=== PATIENT | male | born 1995 | race Caucasian/White ===

== ENCOUNTER 2023-07-17 09:49 | Inpatient (IN) | payer SELFPAY ==
[2023-07-17] VITALS (75 sets, daily range): BP systolic 80–125; BP diastolic 36–78; PULSE 97–149; RESP 10–33; TEMP 34–38.3; O2SAT 77–100
--- NOTE | 2023-07-17 09:30 | RT.EKG_ITS ---
APPROVED REPORT Exam: Resting ECG Reason for Exam: [facility] Patient Location: E HR:147 bpm ECG Measurements Heart Rate 147 AXIS OH 99 P 75 QRSd 80 QRS 78 QT 265 T 6 QTc 415 Conclusion Sinus tachycardia...rate> 99
--- NOTE | 2023-07-17 09:59 | W.ED.GENAD ---
Discharge Plan Disposition Patient Disposition: Admit to [facility] Condition: Serious Discharge Details Clinical Impression: Accidental drug overdose, Hypoxia, Pneumonia ED Provider: Agnieszka Hartley Home Meds and New Rx's Prescriptions: No Action No Known Home Meds HPI General Date/Time Provider Initiated Documentation: 07/17/23 09:56. HPI Narrative: 27-year-old male presents for evaluation after drug overdose. Patient received intranasal Narcan twice with EMS. He was initially unresponsive. He required bagging prior to Narcan. He was awake in route and able to follow commands. At time of ED evaluation he is able to stand and move over to the stretcher. He has dusky coloring. He does not know when he used the drugs. EMS stated that he thought he was using heroin. Related Data Home Medications Medication Instructions Recorded Confirmed Unknown [No Known Home Meds] 07/17/23 07/17/23 General Stated Complaint: OD/Poison DANIELLE: 2 Review of Systems Narrative: Review of systems unobtainable due to patient's medical condition Exam Narrative Exam Narrative: General: non-toxic, no respiratory distress, dusky coloring HEENT: normocephalic, atraumatic, lids and lashes normal, pupils pinpoint, EOMI, anicteric sclera, no conjunctival injection, moist oral mucosa Card: Tachycardic, regular, S1S2, no murmurs, rubs, or gallops Lungs: good air entry, clear to auscultation bilaterally. no wheezes, rales, rhonchi, or retractions Abd: soft, non-tender, non-distended, normal bowel sounds, no rebound or guarding, no peritoneal signs Musculoskeletal: full range of motion of arms and legs, no tenderness to palpation. no clubbing, cyanosis, or edema Neurologic: GCS 15, able to follow commands, appropriate for age, strength normal Psych: alert and oriented Skin: As above, otherwise no petechiae, no lesions, warm and dry Course Vital Signs Vital signs: Vital Signs Temperature 36.7 C 07/17/23 09:35 Pulse 149 H 07/17/23 09:35 Respiratory Rate 28 H 07/17/23 09:35 Blood Pressure 112/55 L 07/17/23 09:35 Pulse Oximetry 77 L 07/17/23 09:35 Temperature 36.7 C 03/04/24 09:35 Temperature Source Oral 07/17/23 09:35 Pulse 149 H 07/17/23 09:35 Respiratory Rate 28 H 07/17/23 09:35 Blood Pressure 112/55 L 07/17/23 09:35 Blood Pressure Position Supine 07/17/23 09:35 Pulse Oximetry 77 L 07/17/23 09:35 Oxygen Delivery Method Non-Rebreather 07/17/23 09:35 Oxygen Flow Rate 15 07/17/23 09:35 Medical Decision Making 27-year-old male presents for evaluation after drug overdose. He initially was unresponsive, required bagging, 2 intranasal doses of Narcan. At ED arrival his skin is very dusky. He continues to have pinpoint pupils. Initial oxygen saturation in the 70s however on exam he was moving good air. 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 ABG was obtained. He does have pH of 7.3 with a pCO2 of 54. Chest x-ray was obtained and concerning for fluid. 1010 -Patient did start to wake up more. His pupils were not as dilated and he is able to answer a few more questions. Will place on BiPAP. Patient's oxygen saturations blood pressure improved on BiPAP. He remained on BiPAP until he began having some coughing episodes and pulled the BiPAP off. A repeat ABG was obtained just prior to that which shows significant improvement in his oxygenation. BiPAP remained off due to patient's coughing. He did then have multiple episodes of apnea between coughing. Respiratory therapy was at bedside. Upon urging him to breathing cough he did. A dose of IV Narcan was therefore given. He was switched to high flow nasal cannula. His blood pressure had improved with systolics greater than 100 however during this episode his blood pressure then decreased again. Additional IV fluids were ordered. Patient's girlfriend did arrive with more history. Apparently patient was last seen well at night prior to going to bed. This morning when she woke up he was unresponsive with pink frothy vomit. She called 911. Patient states that he is actually had a cough for the last month. He does vape. He believes he was smoking heroin last night. He states this was an accidental overdose. He was not trying to hurt himself. Patient did receive a second dose of Narcan. He high flow oxygen was placed. Vital signs have improved. Case was discussed with hospitalist, Dr. Callahan who will admit to his service. ECG Data Interpretation: 12 lead EKG performed at 9: 41 Indication: Overdose Rhythm: Sinus tachycardia Rate: 147 [place]:Normal Intervals: Normal QRS: Normal ST segments: Normal T Waves: Normal INTERPRETATION: Sinus tachycardia Comparison to old EKG: No prior for comparison The 12 lead EKG was interpreted by myself Quality:SDOH Health Related Social Needs: No Data to Display Critical Care Time Critical Care Time Attestation: CRITICAL CARE Total critical care time: 75 minutes Critical care concerns: Hypoxia, hypotension Critical care interventions: oxygen, IV fluids, IV antibiotics, IV narcan, frequent reassesment Total critical care time included the assessment and discussions as described in the emergency department history, physical, and medical decision making. The critical care time provided excludes separately billable procedures. PFSH All Active Problems (Updated 07/17/23 @ 13:14 by Nick Callahan MD) Acute respiratory failure with hypoxia (Acute) Severe sepsis (Acute) Aspiration pneumonia (Acute) Opiate overdose (Acute) Pneumonia (Acute) Hypoxia (Acute) Accidental drug overdose (Acute) Social History Smoking/Tobacco Use Status: Never Smoking risk assessment performed?: Yes Alcohol Intake: never Substance use type: does not use and heroin Details: pt reports no drug use, but states used this am
[2023-07-17 10:03] LABS: BE -3 mmol/L (-2-3); HCO3 23 mmol/L (22-26); pCO2 48 mmHg (35-45); pO2 54 mmHg (80-105); sO2 87 % (95-98); tCO2 21 mmol/L (23-27)
[2023-07-17 10:06] LABS: FIO2L 15 L; Site Left Radial
[2023-07-17 10:11] LABS: Abs Immature Grans 0.08 10^3/uL (0.0-0.06); Basophils % 0.5; Eosinophils % 0.1; HCT 51.8 % (40.0-50.0); Immature Grans % 0.4; Lymphocytes % 7.8; MCH 35.1 pg (27.0-33.0); MCHC 34.7 % (32.0-36.0); MCV 101 fL (80-95); MPV 9.2 fL (8.0-11.0); Monocytes % 0.9; Neutrophils % 90.3; Platelet Count 361 10^3/uL (130-400); RBC 5.13 10^6/uL (4.36-5.78); RDW 12.1 % (11.8-14.1); RDW-SD 45.9 fL; WBC 19.12 10^3/uL (4.4-10.8)
[2023-07-17 10:12] LABS: Absolute Eosinophil Count 0.02 10^3/uL (0.0-0.7); Absolute Lymphocyte Count 1.49 10^3/uL (1.2-3.4); Absolute Monocyte Count 0.17 10^3/uL (0.1-0.8); Absolute Neutrophil Count 17.27 10^3/uL (1.2-6.7)
--- NOTE | 2023-07-17 10:12 | DI.RAD_ITS ---
Exam(s) XR PORTABLE CHEST AP EXAM: XR PORTABLE CHEST AP CLINICAL HISTORY: overdose TECHNIQUE: 2D digital imaging was performed. COMPARISON: No exams were available for comparison FINDINGS: Exam limited by multiple overlying monitoring leads. LUNGS: Large infiltrate involving the majority of the right lung. Mildly increased density seen in t he perihilar region on the left. No pleural abnormality seen. HEART: Normal size. AORTA: Normal diameter. BONES: Unremarkable for age. Soft tissues: Unremarkable. IMPRESSION: Bilateral pneumonia, right greater than left. DATA REPOSITORY: RADIATION DOSE DELIVERED:
[2023-07-17] MEDS: Normal Saline 1,000 ML 1000 ML IV ×4 (10:20→12:50)
[2023-07-17] MEDS: PIPERACILLIN/TAZO 4.5 GM in Normal Saline 100 ML IVPB ×3 (10:40→22:43)
[2023-07-17 10:42] LABS: Lactate 3.1 mmol/L (0.6-1.4)
[2023-07-17 11:02] LABS: Salicylate < 2.8 mg/dL (<2.8)
[2023-07-17 11:03] LABS: Acetaminophen < 2 ug/mL (10-30)
[2023-07-17 11:05] LABS: ALT 28 U/L (16-63); AST 23 U/L (15-37); Albumin 3.2 g/dL (3.4-5.0); Alkaline Phosphatase 73 U/L (46-116); Anion Gap 12.1 mmol/L (3-11); BUN 14 mg/dL (7-18); Bilirubin, Total 0.3 mg/dL (0.2-1.0); CO2 24.9 mmol/L (21.0-32.0); CREATININE 1.5 mg/dL (0.70-1.30); Calcium 8.4 mg/dL (8.5-10.1); Chloride 104 mmol/L (98-107); ETHANOL BLOOD < 3.0 mg/dL (<10); Estimated GFR 65.03 (mL/min/1.73m2); Glucose 116 mg/dL (74-106); Potassium 3.9 mmol/L (3.5-5.1); Sodium 141 mmol/L (136-145); Total Protein 6.2 g/dL (6.4-8.2)
[2023-07-17 11:06] LABS: Troponin I 158 ng/L (< or =60)
[2023-07-17 11:33] LABS: Creatine Kinase 351 U/L (39-308)
[2023-07-17 11:38] LABS: BE -3 mmol/L (-2-3); HCO3 24 mmol/L (22-26); pCO2 51 mmHg (35-45); pH 7.27 (7.35-7.45); pO2 260 mmHg (80-105)
[2023-07-17 11:39] LABS: FIO2 100 %; Site Left Radial
[2023-07-17 11:48] LABS: Bilirubin Negative (Negative); Blood Negative (Negative); Clarity Clear (Clear); Glucose 100 mg/dL (Negative); Ketones Negative (Negative); Leukocyte Esterase Negative (Negative); Nitrite Negative (Negative); Specific Gravity >= 1.030 (1.005-1.025); Urobilinogen 0.2 mg/dL (Up to 0.2); pH 5.5 (5-8)
[2023-07-17 11:53] LABS: *AMPHETAMINES SCREEN URINE Negative (Negative); *BARBITURATES SCREEN URINE Negative (Negative); *BENZODIAZEPINES SCREEN URINE Negative (Negative); Cannabinoids THC Negative (Negative); Cocaine Screen,Urine Positive (Negative); METHADONE URINE SCREEN Negative (Negative); OPIATES URINE SCREEN Negative (Negative)
[2023-07-17] MEDS: Naloxone 0.4 MG/ML VIAL IVP (11:53)
[2023-07-17 11:54] LABS: Tricyclic Antidepressants Negative (Negative)
[2023-07-17] MEDS: Naloxone 0.4 MG/ML VIAL (12:34)
[2023-07-17 12:35] LABS: COVID-19 PCR Negative (Negative); Influenza A PCR Negative (Negative); Influenza B PCR Negative (Negative); RSV PCR Negative (Negative)
[2023-07-17 12:36] LABS: Source Nasopharynx
[2023-07-17 12:38] LABS: sO2 98 % (95-98)
--- NOTE | 2023-07-17 13:06 | HPE_ITS ---
Date of service: 07/17/23 Time of Service: 13:07 Assessment and Plan Assessment and plan (1) Opiate overdose: Status: Acute Assessment and plan: - Patient presented after being found down with concerns for opiate overdose -Patient did responded to intranasal Narcan in the field and has required 2 additional doses of 0.4 mg IV Narcan while in the emergency department -Patient appears to be more awake with comparatively more dilated pupils compared to presentation -However, if patient's respiratory rate declines, he has worsening oxygen saturation or becomes less responsive will initiate Narcan drip Qualifiers: Encounter type: initial encounter Injury intent: accidental or unintentional Qualified Code(s): T40.601A - Poisoning by unspecified narcotics, accidental (unintentional), initial encounter (2) Severe sepsis: Status: Acute Assessment and plan: - Patient meets criteria for severe sepsis with chest x-ray suggestive of bilateral aspiration pneumonia in the setting of opiate overdose, tachycardia with heart rate greater than 90 bpm, tachypnea with respiratory rate greater than 20 breaths/min, a white count of 19, initial lactic acid of 3.1, and systolic blood pressure less than 90 that has responded to fluid resuscitation -Patient initially started on Zosyn in the emergency department which will be continued -MRSA swab ordered, will initiate vancomycin if positive -Will follow-up repeat lactic acid and CBC in the morning -Follow-up blood cultures -Obtain sputum culture if able -Patient has been given 4 L normal saline in the emergency department for fluid resuscitation -If patient remains hypotensive will initiate Levophed (3) Aspiration pneumonia: Status: Acute Assessment and plan: - Source of infection and likely secondary to opiate overdose as noted above (4) Acute respiratory failure with hypoxia: Status: Acute Assessment and plan: - Secondary to opiate overdose and presumed bilateral aspiration pneumonia as noted above -Currently on high flow nasal cannula -Wean oxygen as tolerated with goal oxygen saturation greater than 92% History of Present Illness History of Present Illness Chief Complaint: Drug overdose Narrative: 27-year-old male with no past medical history presents to the emergency department via EMS for concerns of opiate overdose. Patient's last known well was last evening when he saw his girlfriend and reportedly last used heroin. It is unclear who called EMS, however he was initially found by EMS unresponsive and required bagging prior to giving 2 doses of intranasal Narcan. En route to the emergency department EMS reported the patient was able to follow commands, able to stand and move over to the stretcher, but he appeared dusky. In the emergency department the patient was noted as having pinpoint pupils with oxygen saturations in the 70s despite fact that he was moving good air. ABG was obtained which showed pH of 7.3, CO2 of 48, pO2 54, bicarb of 23 with a lactic of 3.1. Shortly after patient appeared to have woken up a little more his pupils were not as dilated as compared to initial presentation was placed on BiPAP which did show improvement of his oxygen saturation. However, patient did not tolerate BiPAP as he was also able to state that he has had a chronic cough over the last month. Chest x-ray was concerning for pulmonary edema which can be associated with opiate overdose, however, official read noted possible bilateral pneumonia likely due to aspiration. Given patient was not tolerating BiPAP he was placed on high flow nasal cannula and appeared to be more comfortable. He did require a second dose of IV Narcan while in the emergency department. Additionally, he had low blood pressures with some systolics in the mid 80s though he appears significantly dry and was given a total of 4 L normal saline in the emergency department with improvement of his systolic blood pressures to the high 90s. At which time emergency room physician paged hospitalist for admission for patient with presumed opiate overdose resulting in acute hypoxic respiratory failure, and severe sepsis with bilateral aspiration pneumonia and lactic acidosis. Review of Systems All systems reviewed & are unremarkable except as noted in HPI and below PFSH All Active Problems (Updated 07/17/23 @ 14:19 by DEEPA SANDERSON) Acute respiratory failure with hypoxia (Acute) Severe sepsis (Acute) Aspiration pneumonia (Acute) Opiate overdose (Acute) Pneumonia (Acute) Hypoxia (Acute) Accidental drug overdose (Acute) Social History Smoking/Tobacco Use Status: Never Smoking risk assessment performed?: Yes Alcohol Intake: never Substance use type: does not use and heroin Details: pt reports no drug use, but states used this am Housing: apartment Meds Allergies and Home Medications Home Medications Medication Instructions Recorded Confirmed Type Unknown [No Known Home Meds] 07/17/23 07/17/23 History Exam Narrative Exam Narrative: Fatigued appearing young gentleman laying in bed and mild respiratory distress due to pleuritic chest pain, ANO x 4, mild tachycardia with heart rate of 100, bilateral coarse breath sounds in bases, abdomen soft, nontender, nondistended, PERRLA Results Labs 07/17/23 09:50 07/17/23 10:25 Labs: Laboratory Results - last 24 hr 07/17/23 07/17/23 07/17/23 09:50 10:00 10:25 WBC 19.12 H RBC 5.13 Hgb 18.0 H Hct 51.8 H MCV 101 H MCH 35.1 H MCHC 34.7 RDW 12.1 Plt Count 361 MPV 9.2 Immature Gran % 0.4 Neutrophils % 90.3 Lymphocytes % 7.8 Monocytes % 0.9 Eosinophils % 0.1 Basophils % 0.5 Nucleated RBC % 0.0 Absolute Neutrophils 17.27 H Absolute Lymphocytes 1.49 Absolute Monocytes 0.17 Absolute Eosinophils 0.02 Absolute Basophils 0.10 ABG Sample Site Left Radial ABG pH 7.30 L ABG pCO2 48 H ABG pO2 54 L ABG HCO3 23 ABG Total CO2 21 L ABG O2 Saturation 87 L ABG Base Excess -3 L VBG Lactate 3.1 H* Oxygen Liter Flow 15 FiO2 Sodium Cancelled 141 Potassium Cancelled 3.9 Chloride Cancelled 104 Carbon Dioxide Cancelled 24.9 Anion Gap Cancelled 12.1 H BUN Cancelled 14 Creatinine Cancelled 1.5 H Est GFR (CKD-EPI 2020) Cancelled 65.03 Glucose Cancelled 116 H Calcium Cancelled 8.4 L Magnesium Cancelled 2.0 Total Bilirubin Cancelled 0.3 AST Cancelled 23 ALT Cancelled 28 Alkaline Phosphatase Cancelled 73 Creatine Kinase 351 H Troponin I Cancelled 158 H* Total Protein Cancelled 6.2 L Albumin Cancelled 3.2 L Urine Color Urine Clarity Urine pH Ur Specific [place] Urine Protein Urine Ketones Urine Blood Urine Nitrite Urine Bilirubin Urine Urobilinogen Ur Leukocyte Esterase Urine Glucose Salicylates < 2.8 Urine Opiates Screen Urine Methadone Screen Acetaminophen < 2 Ur Barbiturates Screen Ur Tricyclics Screen Ur Amphetamines Screen U Benzodiazepines Scrn Urine Cocaine Screen Ur THC Screen Ethyl Alcohol Cancelled < 3.0 COVID-19 Source SARS-CoV-2 (PCR) Influenza Type A (PCR) Influenza Type B (PCR) RSV (PCR) 07/17/23 07/17/23 11:30 11:56 WBC RBC Hgb Hct MCV MCH MCHC RDW Plt Count MPV Immature Gran % Neutrophils % Lymphocytes % Monocytes % Eosinophils % Basophils % Nucleated RBC % Absolute Neutrophils Absolute Lymphocytes Absolute Monocytes Absolute Eosinophils Absolute Basophils ABG Sample Site Left Radial ABG pH 7.27 L ABG pCO2 51 H ABG pO2 260 H ABG HCO3 24 ABG Total CO2 Not Applicable ABG O2 Saturation 98 ABG Base Excess -3 L VBG Lactate Oxygen Liter Flow FiO2 100 Sodium Potassium Chloride Carbon Dioxide Anion Gap BUN Creatinine Est GFR (CKD-EPI 2020) Glucose Calcium Magnesium Total Bilirubin AST ALT Alkaline Phosphatase Creatine Kinase Troponin I Total Protein Albumin Urine Color Yellow Urine Clarity Clear Urine pH 5.5 Ur Specific [place] >= 1.030 H Urine Protein Negative Urine Ketones Negative Urine Blood Negative Urine Nitrite Negative Urine Bilirubin Negative Urine Urobilinogen 0.2 Ur Leukocyte Esterase Negative Urine Glucose 100 H Salicylates Urine Opiates Screen Negative Urine Methadone Screen Negative Acetaminophen Ur Barbiturates Screen Negative Ur Tricyclics Screen Negative Ur Amphetamines Screen Negative U Benzodiazepines Scrn Negative Urine Cocaine Screen Positive A Ur THC Screen Negative Ethyl Alcohol COVID-19 Source Nasopharynx SARS-CoV-2 (PCR) Negative Influenza Type A (PCR) Negative Influenza Type B (PCR) Negative RSV (PCR) Negative Last Vital Signs Temp 98.1 F 07/17/23 09:35 Pulse 108 H 07/17/23 12:45 Resp 25 H 07/17/23 12:50 BP 98/63 L 07/17/23 12:45 Pulse Ox 86 L 07/17/23 11:40 Time Spent Time spent with Patient: 55-74 minutes Time was spent: preparing to see the patient(eg.review tests), obtaining and/or reviewing separately otained hiistory, ordering medications,tests, procedures, referring, communicating with other health career technology teacher, indepentently interpreting results, counseling the patient and care coordination
[2023-07-17 13:52] LABS: Lactate 1.3 mmol/L (0.6-1.4)
[2023-07-17 14:21] LABS: MRSA PCR Negative (Negative)
[2023-07-17 14:22] LABS: Troponin I 381 ng/L (< or =60)
[2023-07-17] MEDS: Enoxaparin 40 MG/0.4 ML SYR SC (15:19)
[2023-07-18] VITALS (88 sets, daily range): BP systolic 96–132; BP diastolic 49–84; PULSE 80–116; RESP 0–36; TEMP 31–37.7; O2SAT 88–98
--- NOTE | 2023-07-18 00:33 | NUR.NOTE ---
Nursing Note: Pt maintaining Sp02 above 95%. Titrated FiO2 to 50% @ 60L
[2023-07-18] MEDS: PIPERACILLIN/TAZO 4.5 GM in Normal Saline 100 ML IVPB ×4 (04:39→21:13)
[2023-07-18 05:32] LABS: HCT 35.4 % (40.0-50.0); HGB 12.3 g/dL (13.5-17.5); MCH 34.7 pg (27.0-33.0); MCHC 34.7 % (32.0-36.0); MCV 100 fL (80-95); MPV 9.2 fL (8.0-11.0); Platelet Count 154 10^3/uL (130-400); RBC 3.54 10^6/uL (4.36-5.78); RDW 11.8 % (11.8-14.1); RDW-SD 43.6 fL; WBC 11.03 10^3/uL (4.4-10.8)
[2023-07-18 05:44] LABS: Anion Gap 6.1 mmol/L (3-11); BUN 8 mg/dL (7-18); CO2 25.9 mmol/L (21.0-32.0); CREATININE 1.1 mg/dL (0.70-1.30); Calcium 7.6 mg/dL (8.5-10.1); Chloride 106 mmol/L (98-107); Estimated GFR 94.36 (mL/min/1.73m2); Glucose 114 mg/dL (74-106); Potassium 3.3 mmol/L (3.5-5.1); Sodium 138 mmol/L (136-145)
[2023-07-18] MEDS: oxyCODONE 5 MG TAB PO (09:27)
--- NOTE | 2023-07-18 09:35 | PGE_ITS ---
Date of Service Date of service: 07/18/23 Time of Service: 09:35 Assessment and Plan Assessment and plan (1) Opiate overdose: Status: Acute Assessment and plan: -Patient presented after being found down with concerns for opiate overdose -Patient did responded to intranasal Narcan in the field and has required 2 additional doses of 0.4 mg IV Narcan while in the emergency department -Patient appears to be more awake with comparatively more dilated pupils compared to presentation -However, if patient's respiratory rate declines, he has worsening oxygen saturation or becomes less responsive will initiate Narcan drip Qualifiers: Encounter type: initial encounter Injury intent: accidental or unintentional Qualified Code(s): T40.601A - Poisoning by unspecified narcotics, accidental (unintentional), initial encounter (2) Severe sepsis: Status: Acute Assessment and plan: - Patient meets criteria for severe sepsis with chest x-ray suggestive of bilateral aspiration pneumonia in the setting of opiate overdose, tachycardia with heart rate greater than 90 bpm, tachypnea with respiratory rate greater than 20 breaths/min, a white count of 19, initial lactic acid of 3.1, and systolic blood pressure less than 90 that has responded to fluid resuscitation -Patient initially started on Zosyn in the emergency department which will be continued -MRSA swab ordered, will initiate vancomycin if positive -Will follow-up repeat lactic acid and CBC in the morning -Follow-up blood cultures -Obtain sputum culture if able -Patient has been given 4 L normal saline in the emergency department for fluid resuscitation -If patient remains hypotensive will initiate Levophed (3) Aspiration pneumonia: Status: Acute Assessment and plan: - Source of infection and likely secondary to opiate overdose as noted above (4) Acute respiratory failure with hypoxia: Status: Acute Assessment and plan: -Secondary to opiate overdose and presumed bilateral aspiration pneumonia as noted above -Had required up to 60 L and 60% high flow nasal cannula overnight -As of this morning has been weaned down to 2 L nasal cannula -Continue to wean as tolerated with goal oxygen saturation greater than 92% Subjective Subjective Interval history since last seen: Patient states that he is feeling a little better as compared to yesterday but continues to have significant pleuritic chest pain. It was explained to him this is likely secondary to scar from having performed CPR, his opiate overdose and resulting aspiration pneumonia/pneumonitis. He understands the importance of using his incentive spirometer and taking deep breaths. Exam Narrative Exam Narrative: Fatigued appearing young gentleman laying in bed in no acute distress, ANO x 4, heart regular rate and rhythm, mild coarse breath sounds in bilateral bases, abdomen soft, nontender, nondistended Objective Last Vital Signs Temp 98.4 F 07/18/23 08:00 Pulse 86 07/18/23 08:01 Resp 22 07/18/23 08:41 BP 127/78 07/18/23 08:01 Pulse Ox 95 07/18/23 08:41 Laboratory Results - last 24 hr 07/17/23 07/17/23 07/17/23 09:50 10:00 10:25 WBC 19.12 H RBC 5.13 Hgb 18.0 H Hct 51.8 H MCV 101 H MCH 35.1 H MCHC 34.7 RDW 12.1 Plt Count 361 MPV 9.2 Immature Gran % 0.4 Neutrophils % 90.3 Lymphocytes % 7.8 Monocytes % 0.9 Eosinophils % 0.1 Basophils % 0.5 Nucleated RBC % 0.0 Absolute Neutrophils 17.27 H Absolute Lymphocytes 1.49 Absolute Monocytes 0.17 Absolute Eosinophils 0.02 Absolute Basophils 0.10 ABG Sample Site Left Radial ABG pH 7.30 L ABG pCO2 48 H ABG pO2 54 L ABG HCO3 23 ABG Total CO2 21 L ABG O2 Saturation 87 L ABG Base Excess -3 L VBG Lactate 3.1 H* Oxygen Liter Flow 15 FiO2 Sodium Cancelled 141 Potassium Cancelled 3.9 Chloride Cancelled 104 Carbon Dioxide Cancelled 24.9 Anion Gap Cancelled 12.1 H BUN Cancelled 14 Creatinine Cancelled 1.5 H Est GFR (CKD-EPI 2020) Cancelled 65.03 Glucose Cancelled 116 H Calcium Cancelled 8.4 L Magnesium Cancelled 2.0 Total Bilirubin Cancelled 0.3 AST Cancelled 23 ALT Cancelled 28 Alkaline Phosphatase Cancelled 73 Creatine Kinase 351 H Troponin I Cancelled 158 H* Total Protein Cancelled 6.2 L Albumin Cancelled 3.2 L Urine Color Urine Clarity Urine pH Ur Specific [place] Urine Protein Urine Ketones Urine Blood Urine Nitrite Urine Bilirubin Urine Urobilinogen Ur Leukocyte Esterase Urine Glucose Salicylates < 2.8 Urine Opiates Screen Urine Methadone Screen Acetaminophen < 2 Ur Barbiturates Screen Ur Tricyclics Screen Ur Amphetamines Screen U Benzodiazepines Scrn Urine Cocaine Screen Ur THC Screen Ethyl Alcohol Cancelled < 3.0 COVID-19 Source SARS-CoV-2 (PCR) Influenza Type A (PCR) Influenza Type B (PCR) RSV (PCR) MRSA (TEM-PCR) 07/17/23 07/17/23 07/17/23 11:30 11:56 13:05 WBC RBC Hgb Hct MCV MCH MCHC RDW Plt Count MPV Immature Gran % Neutrophils % Lymphocytes % Monocytes % Eosinophils % Basophils % Nucleated RBC % Absolute Neutrophils Absolute Lymphocytes Absolute Monocytes Absolute Eosinophils Absolute Basophils ABG Sample Site Left Radial ABG pH 7.27 L ABG pCO2 51 H ABG pO2 260 H ABG HCO3 24 ABG Total CO2 Not Applicable ABG O2 Saturation 98 ABG Base Excess -3 L VBG Lactate Oxygen Liter Flow FiO2 100 Sodium Potassium Chloride Carbon Dioxide Anion Gap BUN Creatinine Est GFR (CKD-EPI 2020) Glucose Calcium Magnesium Total Bilirubin AST ALT Alkaline Phosphatase Creatine Kinase Troponin I Total Protein Albumin Urine Color Yellow Urine Clarity Clear Urine pH 5.5 Ur Specific [place] >= 1.030 H Urine Protein Negative Urine Ketones Negative Urine Blood Negative Urine Nitrite Negative Urine Bilirubin Negative Urine Urobilinogen 0.2 Ur Leukocyte Esterase Negative Urine Glucose 100 H Salicylates Urine Opiates Screen Negative Urine Methadone Screen Negative Acetaminophen Ur Barbiturates Screen Negative Ur Tricyclics Screen Negative Ur Amphetamines Screen Negative U Benzodiazepines Scrn Negative Urine Cocaine Screen Positive A Ur THC Screen Negative Ethyl Alcohol COVID-19 Source Nasopharynx SARS-CoV-2 (PCR) Negative Influenza Type A (PCR) Negative Influenza Type B (PCR) Negative RSV (PCR) Negative MRSA (TEM-PCR) Negative 07/17/23 07/18/23 13:42 05:15 WBC 11.03 H RBC 3.54 L Hgb 12.3 L D Hct 35.4 L MCV 100 H MCH 34.7 H MCHC 34.7 RDW 11.8 Plt Count 154 D MPV 9.2 Immature Gran % Neutrophils % Lymphocytes % Monocytes % Eosinophils % Basophils % Nucleated RBC % Absolute Neutrophils Absolute Lymphocytes Absolute Monocytes Absolute Eosinophils Absolute Basophils ABG Sample Site ABG pH ABG pCO2 ABG pO2 ABG HCO3 ABG Total CO2 ABG O2 Saturation ABG Base Excess VBG Lactate 1.3 Oxygen Liter Flow FiO2 Sodium 138 Potassium 3.3 L Chloride 106 Carbon Dioxide 25.9 Anion Gap 6.1 BUN 8 Creatinine 1.1 Est GFR (CKD-EPI 2020) 94.36 Glucose 114 H Calcium 7.6 L Magnesium Total Bilirubin AST ALT Alkaline Phosphatase Creatine Kinase Troponin I 381 H* Total Protein Albumin Urine Color Urine Clarity Urine pH Ur Specific [place] Urine Protein Urine Ketones Urine Blood Urine Nitrite Urine Bilirubin Urine Urobilinogen Ur Leukocyte Esterase Urine Glucose Salicylates Urine Opiates Screen Urine Methadone Screen Acetaminophen Ur Barbiturates Screen Ur Tricyclics Screen Ur Amphetamines Screen U Benzodiazepines Scrn Urine Cocaine Screen Ur THC Screen Ethyl Alcohol COVID-19 Source SARS-CoV-2 (PCR) Influenza Type A (PCR) Influenza Type B (PCR) RSV (PCR) MRSA (TEM-PCR) PAWSS Have you Been Recently Intoxicated or Drunk Within the Last 30 days?: No Have you Ever Experienced Previous Episodes of Alcohol Withdrawal?: No Have you ever Experienced Withdrawal Seizures?: No Have you ever Experienced Delirium Tremens(DT)s?: No Have you ever undergone Alcohol Rehabilitation Treatment (i.e, inpt ot outpatient treatment programs)?: No Have you ever Experienced Blackouts?: No Have you ever Combined Alcohol with other Downers within the last 90 days?: Unable to Obtain Have you ever Combined Alcohol with any other Substance of Abuse during the last 90 days?: Yes Positive Blood Alcohol level on Presentation? [PCS.BAL]: No Evidence of Increased Autonomic Activity (i.e. HR>120, tremor, sweating, agitation, nausea)?: No Result: 2 Time Spent with Patient Time Spent with Patient: >50 minutes Time was spent: preparing to see the patient(eg.review tests), obtaining and/or reviewing separately otained hiistory, ordering medications,tests, procedures, referring, communicating with other health med care manager, indepentently interpreting results, counseling the patient and care coordination
--- NOTE | 2023-07-18 11:42 | PHA.REVIEW2 ---
Pharmacy Admission Review Admission Clinical Review Admission Pharmacy Review: Acute respiratory failure with hypoxia (Acute) Severe sepsis (Acute) Aspiration pneumonia (Acute) Opiate overdose (Acute) No Known Allergies Allergy (Unverified 07/17/23 21:29) Resuscitation Status Full Code Height 6 ft Weight 86 kg Pharmacy Admission Review Renal Dosing Renal Dosing: BUN 8 mg/dL (7-18) 07/18/23 05:15 Creatinine 1.1 mg/dL (0.70-1.30) 07/18/23 05:15 Medications needing adjustments: Reviewed (crcl = 122, no adjustments needed) Anticoagulation Anticoagulation: Hgb 12.3 g/dL (13.5-17.5) L D 07/18/23 05:15 Hct 35.4 % (40.0-50.0) L 07/18/23 05:15 Plt Count 154 10^3/uL (130-400) D 07/18/23 05:15 Creatinine 1.1 mg/dL (0.70-1.30) 07/18/23 05:15 DVT Prophylaxis: Reviewed Medications: Enoxaparin (40 mg daily) Therapeutic Anticoagulation: N/A Opiate Usage Evaluate Pain Scale/Pains Meds: Reviewed (oxycodone 5 mg q6h prn started today for significant pleuritic chest pain (MD aware of hx of opiate abuse, overdose)) Scheduled Bowel Reg ordered if on Opiates?: No (prn) Relevant Labs Relevant Labs: Sodium 138 mmol/L (136-145) 07/18/23 05:15 Potassium 3.3 mmol/L (3.5-5.1) L 07/18/23 05:15 Chloride 106 mmol/L (98-107) 07/18/23 05:15 Magnesium 2.0 mg/dL (1.8-2.4) 07/17/23 10:25 Electrolytes, C-Reactive P, ESR: Reviewed (hgb 12.3 (from 18 yesterday)) DM Control DM Control: N/A Cardiac Review Cardiac Review: Troponin I 381 ng/L (< or =60) H* 07/17/23 13:42 BP, HR, EF%: Reviewed QTc Review QTc: Reviewed (QTc = 415, WNL) List meds needing interventions: n/a IV to PO Switch IV Medications: Reviewed (IV abx for aspiration pneumonia, likely switch to PO on discharge. otherwise other meds all PO) Home Meds Home Med List reviewed: Reviewed (no known home meds) Current Meds Current Medication Order Review: Reviewed Pharmacy Antibiotic Review Relevant Labs: WBC 11k [place] [id number] yesterday Pharmacy Antibiotic Activity: C/S review (MRSA swab negative. sputum, blood cultures pending) and Reviewed, no change Comments: zosyn 4.5 q6h (indication: aspiration pneumonia)
[2023-07-18] MEDS: Enoxaparin 40 MG/0.4 ML SYR SC (15:19)
--- NOTE | 2023-07-18 16:16 | PDOC.CMIN ---
Date of service: 07/18/23 Time of Service: 16:16 Care Management Initial Assmt Initial Assessment REASON FOR HOSPITALIZATION:: Accidental overdose PREVIOUS FUNCTIONAL STATUS/SOCIAL/FAMILY SUPPORTS:: Resides locally, in [place]. Appears independent at baseline in the community. Significant other present during hospitalization. CURRENT FUNCTIONAL STATUS:: CM consulted re: behavioral outbursts from Patrice and his significant other including insults and swearing at each other and being verbally aggressive toward staff. CM attempted to preface observations and reason for consult; significant other (SO) became verbally abusive toward this personal lines underwriter, said she would rather leave, and balled up her blanket and threw it at Dagoberto head from a step away stating I hope you're happy now! She verbalized feeling like she could be emotionally explosive because my boyfriend just OD'd two nights ago, CM attempted to positively redirect interaction, SO called this personal lines underwriter a plethora of insults and stormed out of the room. CM attempted to debrief with Patrice who stated I just want to be left alone. ADVANCE DIRECTIVES:: None on file Has patient been provided with info about the portal/API?: No Did the patient sign up for the portal?: No CODE STATUS:: Full Code INSURANCE COVERAGE / FINANCIAL ISSUES:: Unable to obtain CURRENT HOME/COMMUNITY SERVICES/EQUIPMENT:: Unable to obtain PRIMARY CARE PHYSICIAN:: Unable to obtain POTENTIAL DISCHARGE NEEDS:: CM will again attempt to support Patrice and offer PCP follow up, insurance support, review recovery services per patient wishes and engagement. PATIENT/FAMILY EDUCATION NEEDS:: Review discharge instructions, discuss Ask Me Three. ANTICIPATED BARRIERS TO DISCHARGE:: None identified. TRANSPORTATION:: Anticipate via private vehicle with [employer]. PLAN:: Patrice remains in the ICU-CM following. [facility] All Active Problems (Updated 07/17/23 @ 14:19 by DEEPA SANDERSON) Acute respiratory failure with hypoxia (Acute) Severe sepsis (Acute) Aspiration pneumonia (Acute) Opiate overdose (Acute) Pneumonia (Acute) Hypoxia (Acute) Accidental drug overdose (Acute) Social History Smoking/Tobacco Use Status: Never Smoking risk assessment performed?: Yes Alcohol Intake: never Substance use type: does not use and heroin Details: pt reports no drug use, but states used this am Housing: apartment SDOH(Care Management) Screening Will the Patient Participate in the Screening?: Yes Do you worry about having a steady place to live?: no Problems where you live: no known problems In the past 12 months, have you had to go without electric, gas, oil or water in your home?: no Have you or anyone in your house had to go without enough food to eat?: no Has lack of transportation kept you from medical appointments or from doing things needed for daily living?: no Has anyone in your support network made you feel unsafe for any reason?: no
--- NOTE | 2023-07-18 23:00 | NUR.NOTE ---
Nursing Note: Discussed with Jacinta Campos RN drop in potassium level from 3.9 to 3.3 on am labwork. Reported to me that the day hospitalist was informed of this drop and no further action was required.
[2023-07-18] MEDS: Normal Saline Flush 10 ML SYR (23:32)
[2023-07-19] VITALS (41 sets, daily range): BP systolic 134–141; BP diastolic 83–94; PULSE 76–106; RESP 9–34; TEMP 36.7–37.2; O2SAT 89–96
[2023-07-19] MEDS: PIPERACILLIN/TAZO 4.5 GM in Normal Saline 100 ML IVPB ×2 (03:22→10:06)
[2023-07-19] MEDS: Normal Saline Flush 10 ML SYR IVP ×3 (03:23→10:06)
--- NOTE | 2023-07-19 05:49 | NUR.NOTE ---
Nursing Note: Patient refused am labwork and was verbally abusive to staff counsel, stating he didn't want anything but to go home. Has been on cell phone. Notified terrazzo supervisor that patient may be considering leaving Against Medical Advice.
--- NOTE | 2023-07-19 11:26 | DSE_ITS ---
Date of service: 07/19/23 Time of Service: 11:26 DS: Diagnosis Discharge Diagnosis (1) Opiate overdose: Status: Acute Asessment and Plan: -Patient presented after being found down with concerns for opiate overdose -Patient did responded to intranasal Narcan in the field and has required 2 additional doses of 0.4 mg IV Narcan while in the emergency department -Patient appears to be more awake with comparatively more dilated pupils compared to presentation (2) Severe sepsis: Status: Acute Asessment and Plan: -Patient initially started on Zosyn in the emergency department; being discharged with an additional 4 days of PO augmentin -Will follow-up repeat lactic acid and CBC in the morning -blood and sputum cultures negative to date -Patient has been given 4 L normal saline in the emergency department for fluid resuscitation (3) Aspiration pneumonia: Status: Acute (4) Acute respiratory failure with hypoxia: Status: Acute Discharge Plan Disposition Patient Disposition: Home Condition: Good Discharge Details Reason For Visit: Opiate overdose Admit Date/Time: 07/17/23 13:04 Admit Provider: Nick Callahan Attending Provider: Nick Callahan Primary Care Provider: Unknown,Unknown Hospital Course Hospital Course: Patient initially presented after unintentionally overdoing on heroin the night prior and was found to require 2x of intranasal and 2x doses of IV narcan via EMS and in the ED. He was treated for acute hypoxic respiratory failure due to severe sepsis and aspiration pneumonia with zosyn. He was initially on HFNC but was ultimately weaned to RA and was able to maintain his oxygen saturation above 92%. It was then determined that he was stable for discharge with an additional 4 days of PO augmentin. Home Meds and New Rx's Prescriptions: New amoxicillin-pot clavulanate 875-125 mg tablet 1 tab PO BID Qty: 7 0RF Discharge Instructions Activity:: Activity as Tolerated Equipment/Supplies:: No Equipment Needed Diet:: As Tolerated Discharge Orders Discharge Orders: Discharge Order (Routine); Ordered 07/19/23 Ordered By: Nick Callahan DS: Summary Time Spent with Patient providing and/or coordinating discharge services: Greater than 30 minutes Status at Discharge Functional status at discharge: independent ambulation Overall status at discharge: patient is back to baseline Mental Status: mental status grossly normal Speech and Movement: speech and movement normal Mood: congruent mood Affect: normal affect Quality:SDOH Health Related Social Needs: No Data to Display Exam Narrative Exam Narrative: Fatigued appearing young gentleman laying in bed in no acute distress, ANO x 4, heart regular rate and rhythm, mild coarse breath sounds in bilateral bases, abdomen soft, nontender, nondistended Psych Mental Status: mental status grossly normal Speech and Movement: speech and movement normal Mood: congruent mood Affect: normal affect DS: Data Vitals/I&O Vitals and I&O: Vital Signs Temperature 99.0 F 07/19/23 07:00 Temperature Source Temporal Artery Scan 07/19/23 03:40 Pulse 99 H 07/19/23 10:11 Pulse Rhythm Regular 07/19/23 07:16 Pulse 105 H 07/19/23 10:11 Respiratory Rate 24 07/19/23 10:11 Respiratory Effort Normal, Non-Labored 07/19/23 07:16 Respiratory Depth Normal 07/19/23 07:16 Respiratory Pattern Normal 07/19/23 07:16 Blood Pressure 141/94 H 07/19/23 10:11 Blood Pressure Mean 107 07/19/23 10:11 Blood Pressure Position Supine 07/19/23 03:40 Pulse Oximetry 96 07/19/23 10:11 Respiratory End-tidal CO2 28 07/17/23 10:15 Oxygen Delivery Method Room Air 07/19/23 03:40 Oxygen Flow Rate 0 07/19/23 03:40 Fraction of Inspired Oxygen (FIO2) 35 07/18/23 08:00 Pain Level 0 07/19/23 03:40 Comment Refuses pulmonary exercises 07/18/23 23:21 Intake & Output 07/18/23 07/19/23 07/19/23 17:59 05:59 17:59 Intake Total 320 / 320 920 / 1240 120 / 120 Output Total 1900 / 1900 1200 / 3100 800 / 800 Balance -1580 / -1580 -280 / -1860 -680 / -680 Weight 184 lb 11.958 oz Intake: IV 200 / 200 200 / 400 120 / 120 Oral 120 / 120 720 / 840 0 / 0 Output: Urine 1900 / 1900 1200 / 3100 800 / 800 Other: Urine Color Yellow Pale Yellow Yellow Urine Appearance Clear Clear Clear Urine Odor Normal Normal Comment Patient verbally denies any pain/itching/discomfort with voiding, has not voided this shift. Stool Size Moderate Stool Characteristics Soft Formed Brown Voiding Methods Urinal Urinal Data Completed and Pending Labs on day of discharge: Labs from last 24 hours 07/19/23 05:35 WBC Pending RBC Pending Hgb Pending Hct Pending MCV Pending MCH Pending MCHC Pending RDW Pending Plt Count Pending MPV Pending Sodium Pending Potassium Pending Chloride Pending Carbon Dioxide Pending Anion Gap Pending BUN Pending Creatinine Pending Est GFR (CKD-EPI 2020) Pending Glucose Pending Calcium Pending Preliminary micro results at discharge 07/18/23 05:00 Sputum Culture - Preliminary Sputum 07/17/23 10:25 Blood Culture - Preliminary Blood NO GROWTH 24 HOURS 07/17/23 10:24 Blood Culture - Preliminary Blood NO GROWTH 24 HOURS PFSH All Active Problems (Updated 07/17/23 @ 14:19 by DEEPA SANDERSON) Acute respiratory failure with hypoxia (Acute) Severe sepsis (Acute) Aspiration pneumonia (Acute) Opiate overdose (Acute) Pneumonia (Acute) Hypoxia (Acute) Accidental drug overdose (Acute) Social History Smoking/Tobacco Use Status: Never Smoking risk assessment performed?: Yes Alcohol Intake: never Substance use type: does not use and heroin Details: pt reports no drug use, but states used this am Housing: apartment Time Spent with Patient Time Spent with Patient: <45 minutes Time was spent: preparing to see the patient(eg.review tests), obtaining and/or reviewing separately otained hiistory, ordering medications,tests, procedures, referring, communicating with other health client care specialist, indepentently interpreting results, counseling the patient and care coordination
--- NOTE | 2023-07-19 15:21 | PDOC.CMDIS ---
Date of service: 07/19/23 Time of Service: 15:21 LACE Index Scoring Tool Questions: Length of Stay (in days): 2 Was the patient admitted via the E.D.?: Yes E.D. Visits: 0 Answers: Total Score: 5 Risk of Readmission: Low Risk Care Management Discharge Plan Reason for Hospitalization: Accidental overdose Discharge Plan: Patrice will return to the community. His chart was updated with his cellphone number for outreach, and a [facility] referral (Demond) sent for PCP F/U. Referral also sent to NICOLE Suarez connected with Patrice who declined to provide income specifics at this time. Daniela provided text option from work cell for F/U as well. CM provided return to work letter at Patrice's request. Patient/Family Education Needs: Review discharge instructions, discuss Ask Me Three. SDOH Health Related Social Needs: No Data to Display Health related social needs: housing instability, housed, with risk of homelessness(Z59.811) and problem related to primary support group(Z63.9) Referrals and interventions: Patient declined further support at this time; was provided contact information to follow up.
[2023-07-19 23:12] LABS: Streptococcus Pneumoniae Ag, U Negative (Negative)
== END 2023-07-19 12:40 | disposition home or self-care (01) | DRG 871 ==
LOC: ER 13:42 → ICU 14:18
PROVIDERS: Internal Medicine; Admitting Provider Family Medicine; Emergency Provider Emergency Medicine Emergency Medical Services; Visit Provider Family Medicine
DX: A41.9 Sepsis, unspecified organism (principal); J96.01 Acute respiratory failure with hypoxia; T40.601A Poisoning by unspecified narcotics, accidental (unintentional), initial encounter; R65.20 Severe sepsis without septic shock; F11.90 Opioid use, unspecified, uncomplicated
CPT/HCPCS: 00123; 36415; 80048; 80053; 80307; 82550; 82805; 85027; 87040; 87077; 87637; 87641; 93005; 96361; 96365; 96375; 96376; 99291; J1650; 36600; 71045; 80320; 80329; 81003; 83605; 83735; 84484; 85025; 87070; 87205; 87899; 93010; 99223; 99233; 99238; 99239; J2310; J2543

== ENCOUNTER 2024-02-12 16:24 | Emergency (ER) | payer SELFPAY ==
[2024-02-12 16:34] VITALS: BP 118/75; PULSE 95; RESP 18; TEMP 36.8
--- NOTE | 2024-02-12 17:00 | DI.CT_ITS ---
Exam(s) CT ABDOMEN PELVIS WO EXAM: CT ABDOMEN PELVIS WO CLINICAL HISTORY: right lower back pain, r/o stone/spinal path. TECHNIQUE: Imaging Protocol: Axial computed tomography images with coronal and sagittal reformatted images were created and reviewed. COMPARISON: CT CT LUMBAR SPINE WO from 02/12/2024 FINDINGS: ABDOMEN: Lung Bases: Normal where visualized. Liver: Normal density. No measurable mass. Gallbladder and biliary tract: Gallbladder is contracted. No stones are seen. No biliary ductal dil atation is appreciated. Pancreas: Normal density, no abnormal calcifications or inflammatory process. Spleen: Normal. Kidneys: Normal size, contour and axis.No radiodense stones or obstructive uropathy. No masses seen. Adrenal glands: No mass is seen. Lymph nodes: Within normal limits. Abdominal Aorta: Abdominal portion non-dilated. PELVIS: Bladder:Symmetric distention, no gross wall thickening. Bowel: No obstruction or bowel wall thickening. No evidence of appendicitis. Peritoneal cavity: No ascites, collection or mesenteric inflammatory response. No free air. Reproductive organs: Unremarkable as visualized. Bones: There is a healing nondisplaced fracture involving the left L3 transverse process. Soft Tissues: Within normal limits. IMPRESSION: 1. No evidence of nephrolithiasis or hydronephrosis. 2. Subacute healing nondisplaced fracture involving the left L3 transverse process. RADIATION DOSE DELIVERED: 309.15mGy.cm Total DLP DATA REPOSITORY: All CT scans at this facility are submitted to the National Radiology Data Registry (NRDR) Dose Index Registry (DIR) with the [employer] (ACR). RADIATION OPTIMIZATION: All CT scans at this facility use at least one of these dose optimization te chniques: automated exposure control; mA and/or kV adjustment per patient size (includes targeted exa ms where dose is matched to clinical indication); or iterative reconstruction.
--- NOTE | 2024-02-12 17:13 | W.ED.GENAD ---
Discharge Plan Disposition Patient Disposition: Home Condition: Good Discharge Details Clinical Impression: Back pain Primary Care Provider: Unknown,Unknown ED Provider: Eriberto Piedra Home Meds and New Rx's Prescriptions: New cyclobenzaprine 10 mg tablet 10 mg PO TID Qty: 14 0RF prednisone 50 mg tablet 50 mg PO DAILY Qty: 4 0RF lidocaine [Lidoderm] 5 % adhesive patch,medicated 1 patch Topical Q24H Qty: 15 0RF Discharge Instructions Instructions: Low Back Pain ED Additional Instructions: At this time your signs and symptoms are clinically consistent with a back sprain. This can cause significant pain and take a fair bit of time to heal. I expect 1 to 2 months for potential resolution. In the meantime do not lift anything greater than 5 pounds for the next 2 weeks. Avoid any significant vigorous physical activity. Perform easy gentle regular activities at home without any significant bending or lifting. Please take the steroids as directed. You have been given a prescription for Lidoderm patch. If your insurance does not cover this you can get [id number] Lidoderm patches at 4% which are almost just as effective. Please take the Flexeril as directed but do not take it when driving or operating any vehicles or heavy machinery, swimming, taking long baths, or operating firearms. Please use a heating pad as often as possible on your back. Perform daily gentle stretches on your back. Please continue to take the Tylenol and Motrin. You can take 1000 mg of Tylenol every 6 hours and 600 mg of ibuprofen every 6 hours. If you notice any worsening of your symptoms, or any new symptoms such as vomiting, diarrhea, fever, chills, shortness of breath, chest pain, numbness or tingling in your groin or legs, weakness in your legs, loss of control for your bowels or bladder, or fainting , please return immediately to the emergency department for reevaluation. Please follow up with your primary care provider as soon as possible for reassessment and reevaluation. As always, it was a pleasure participating in your medical care today. Stand Alone Forms: Work Release Discharge Data Discharge Date/Time-TO BE ENTERED AT DEPARTURE: 02/12/24 18:54 HPI General Date/Time Provider Initiated Documentation: 02/12/24 16:26. HPI Narrative: This is a pleasant 28-year-old male with no significant past medical history who presents today for evaluation of right lower back pain. Patient states that last night he noticed some notable achiness in the right lower back as well as tightness. When he woke up this morning things are much better, as he drove to work he noticed significant pain again in his right lower back, described as a spasm. There is also tingling that would radiate down his right buttock down to the anterior lateral aspect of the right leg. Patient denies any saddle anesthesia, numbness or tingling in the groin, change in sensation when wiping. Patient denies any change in sensation during sexual intercourse, difficulty achieving or maintaining an erection or ejaculation, bowel or bladder incontinence, leakage, or retention. Patient denies any weakness in the lower extremities, atypical falls or imbalance. 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 He denies any other complaints at this time. He denies any IV drug use in the last 6 months. He denies fever or chills. No trauma. Related Data Home Medications ?Medication ?Instructions ?Recorded ?Confirmed cyclobenzaprine 10 mg tablet 10 mg PO TID #14 tabs 02/12/24 lidocaine 5 % topical patch 1 patch topical Q24H #15 ea 02/12/24 (Lidoderm) prednisone 50 mg tablet 50 mg PO DAILY #4 tabs 02/12/24 Previous Rx's ?Medication ?Instructions ?Recorded cyclobenzaprine 10 mg tablet 10 mg PO TID #14 tabs 02/12/24 lidocaine 5 % topical patch 1 patch topical Q24H #15 ea 02/12/24 (Lidoderm) prednisone 50 mg tablet 50 mg PO DAILY #4 tabs 02/12/24 Allergies Allergy/AdvReac Type Severity Reaction Status Date / Time No Known Allergies Allergy Unverified 02/12/24 16:48 General Stated Complaint: Nk/Back Pain DANIELLE: 3 Review of Systems All systems reviewed & are unremarkable except as noted in HPI and below Exam Narrative Exam Narrative: 1.Const: Well-nourished, Well-developed, appearing stated age 2.Eyes: PERRL, no conjunctival injection, and symmetrical lids. 3.ENT: Atraumatic external nose and ears. Moist MM. Neck: Symmetric, trachea midline, No thyromegaly. 4.CVS: +S1/S2, No murmurs or gallops. Peripheral pulses 2+ and equal in all extremities. Brisk capillary refill in all extremities. 5.RESP: Unlabored respiratory effort. Clear to auscultation bilaterally. No wheezes rales or rhonchi 6.GI: Soft, Nontender/Nondistended, No hepatosplenomegaly. No guarding or rebound. 7.MSK: Normocephalic/Atraumatic, Extremities w/o deformity or ttp No cyanosis or clubbing, Normal movement of all extremities No midline tenderness to palpation over the CTLS spine. Moderate pain and tenderness on palpation of the right paraspinal musculature in the lumbar area. Spasm is appreciated. Normal ROM in flexion, extension, side bend, and rotation. Patient has +5 out of 5 strength in the lower extremities in dorsiflexion and plantarflexion, knee flexion and extension, hip flexion and extension. Normal strength for dorsiflexion and plantar flexion of the great toe bilaterally. There is +2 over 2 dorsalis pedis pulses bilaterally. There is normal sensation to the skin with light touch at the foot, knee, and hip. Normal saddle sensation. Good sensation over the deep sural nerve area bilaterally. Rectal exam demonstrates good rectal tone with excellent keith-rectal sensation. Reflexes are +2 over 4 in the patellar reflex bilaterally. +5 out of 5 strength in the medial, ulnar, radial nerve distribution bilaterally in the hands as well as intact light touch sensation to these dermatomes on the hands 8.Skin: Warm, Dry. No rashes or lesions. 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 Sensation grossly intact, no focal neurologic deficits. 10.Psych: (AAO) x3. Appropriate mood and affect Course Vital Signs Vital signs: Vital Signs Temperature 36.8 C 02/12/24 16:34 Pulse 95 H 02/12/24 16:34 Respiratory Rate 18 02/12/24 16:34 Blood Pressure 118/75 02/12/24 16:34 Temperature 36.8 C 02/12/24 16:34 Temperature Source Tympanic 02/12/24 16:34 Pulse 95 H 02/12/24 16:34 Respiratory Rate 18 02/12/24 16:34 Respiratory Effort Normal, Non-Labored 02/12/24 16:46 Blood Pressure 118/75 02/12/24 16:34 Blood Pressure Position Sitting 02/12/24 16:34 Oxygen Delivery Method Room Air 02/12/24 16:34 Oxygen Flow Rate 0 02/12/24 16:34 Pain Level 8 02/12/24 16:44 Medical Decision Making This is a pleasant 28-year-old male with no significant past medical history who presents today for evaluation of right lower back pain. Patient states that last night he noticed some notable achiness in the right lower back as well as tightness. When he woke up this morning things are much better, as he drove to work he noticed significant pain again in his right lower back, described as a spasm. There is also tingling that would radiate down his right buttock down to the anterior lateral aspect of the right leg. Patient denies any saddle anesthesia, numbness or tingling in the groin, change in sensation when wiping. Patient denies any change in sensation during sexual intercourse, difficulty achieving or maintaining an erection or ejaculation, bowel or bladder incontinence, leakage, or retention. Patient denies any weakness in the lower extremities, atypical falls or imbalance. 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 He denies any other complaints at this time. He denies any IV drug use in the last 6 months. He denies fever or chills. No trauma. Exam demonstrates well-appearing male, normal sensation throughout, good dorsiflexion of the great toe bilaterally. Normal rectal tone. Normal perirectal sensation. Notable spasm in the paraspinal space around L1-L3. Suspect potential lumbar radiculopathy with associated spasm. However we will get CT to rule out significant osseous pathology or disc pathology. Will give NSAIDs, steroids, cyclobenzaprine, and Lidoderm patch. Will monitor closely and reassess. Will check urinalysis to evaluate for UTI or urolithiasis. Symptoms appear clinically inconsistent with cauda equina syndrome 9 PM X-ray results have returned, no evidence of major osseous abnormality. There is an old nondisplaced fracture involving the left T3 transverse process, but no other significant abnormality. Suspect mild radiculopathy. After medications patient is feeling much better. No concerning red flags to suggest cauda equina syndrome, paraspinal abscess, or other life-threatening etiology. Will recommend continued NSAID muscle relaxant Lidoderm patch and steroid therapy at home. Prescriptions have been sent to his pharmacy on file. Discussed red flags for which to return. I have extensively reviewed the treatment plan and discharge instructions with the patient and their family. I have addressed all patient concerns at this time. The patient and family was made aware of what symptoms to monitor for that would warrant a return to the emergency department. Discussed the plan with the patient and family, they demonstrate verbal understanding and agreement with our assessment and plan at this time. The documentation in this chart was dictated using [employer] dictation software. Please excuse any dictation errors. FINDINGS: ABDOMEN: Lung Bases: Normal where visualized. Liver: Normal density. No measurable mass. Gallbladder and biliary tract: Gallbladder is contracted. No stones are seen. No biliary ductal dilatation is appreciated. Pancreas: Normal density, no abnormal calcifications or inflammatory process. Spleen: Normal. Kidneys: Normal size, contour and axis.No radiodense stones or obstructive uropathy. No masses seen. Adrenal glands: No mass is seen. Lymph nodes: Within normal limits. Abdominal Aorta: Abdominal portion non-dilated. PELVIS: Bladder:Symmetric distention, no gross wall thickening. Bowel: No obstruction or bowel wall thickening. No evidence of appendicitis. Peritoneal cavity: No ascites, collection or mesenteric inflammatory response. No free air. Reproductive organs: Unremarkable as visualized. Bones: There is a healing nondisplaced fracture involving the left L3 transverse process. Soft Tissues: Within normal limits. IMPRESSION: 1. No evidence of nephrolithiasis or hydronephrosis. 2. Subacute healing nondisplaced fracture involving the left L3 transverse process. FINDINGS: Bones: There is a nondisplaced fracture of the L3 transverse process. There is callus formation about the fracture consistent with a subacute fracture. No other fractures identified. The sacroiliac joints are well maintained. The alignment of the spine is normal including the thoracolumbar junction. Soft tissues: The soft tissues of the visualized abdomen and chest are unremarkable. No large disk herniations are identified. IMPRESSION: 1. There is a subacute healing nondisplaced fracture of the left L3 transverse process. 2. No other fracture or subluxation is seen in the lumbar spine. 3. No large disc herniations are present. Quality:SDOH Health Related Social Needs: Health related social needs risk of homeless, personal safety PFSH All Active Problems Back pain (Acute) Hypoxia (Acute) Accidental drug overdose (Acute) Medical History Pneumonia Social History Smoking/Tobacco Use Status: Never Smoking risk assessment performed?: Yes Alcohol Intake: never Substance use type: does not use and heroin Details: pt reports no drug use, but states used this am Housing: apartment
[2024-02-12] MEDS: Ketorolac 30 MG/ML VIAL IM (17:16)
[2024-02-12] MEDS: Lidocaine 5% Patch 1 PATCH TP (17:17)
[2024-02-12] MEDS: Cyclobenzaprine 10 MG TAB PO (17:17)
[2024-02-12] MEDS: methylPREDNISolone SUCC 125 MG VIAL IM (17:18)
[2024-02-12 17:20] LABS: Bilirubin Small (Negative); Blood Negative (Negative); Clarity Clear (Clear); Glucose Negative (Negative); Ketones Trace mg/dL (Negative); Leukocyte Esterase Negative (Negative); Nitrite Negative (Negative); Specific Gravity >= 1.030 (1.005-1.025); Urobilinogen 0.2 mg/dL (Up to 0.2); pH 5.5 (5-8)
[2024-02-12 17:27] LABS: Bacteria Negative HPF (Negative); C & S Indicated? No; Crystals Few Calcium Oxalate HPF (Negative); Epithelial Cells Negative HPF (Negative); Mucus Heavy (Negative); RBC 0-2 HPF (0-2); WBC 0-2 HPF (0-5)
--- NOTE | 2024-02-12 17:53 | DI.CT_ITS ---
Exam(s) CT LUMBAR SPINE WO EXAM: CT LUMBAR SPINE WO CLINICAL HISTORY: right lower back pain, r/o stone/spinal path. TECHNIQUE: Imaging Protocol: Axial computed tomography images with coronal and sagittal reformatted images were created and reviewed. COMPARISON: No exams were available for comparison FINDINGS: Bones: There is a nondisplaced fracture of the L3 transverse process. There is callus formation abou t the fracture consistent with a subacute fracture. No other fractures identified. The sacroiliac j oints are well maintained. The alignment of the spine is normal including the thoracolumbar junction . Soft tissues: The soft tissues of the visualized abdomen and chest are unremarkable. No large disk he rniations are identified. IMPRESSION: 1. There is a subacute healing nondisplaced fracture of the left L3 transverse process. 2. No other fracture or subluxation is seen in the lumbar spine. 3. No large disc herniations are present. RADIATION DOSE DELIVERED: 309.15mGy.cm Total DLP 309.15mGy.cm Total DLP 309.15mGy.cm Total DLP DATA REPOSITORY: All CT scans at this facility are submitted to the National Radiology Data Registry (NRDR) Dose Index Registry (DIR) with the [employer] ([employer]). RADIATION OPTIMIZATION: All CT scans at this facility use at least one of these dose optimization te chniques: automated exposure control; mA and/or kV adjustment per patient size (includes targeted exa ms where dose is matched to clinical indication); or iterative reconstruction.
[2024-02-12] MEDS: Cyclobenzaprine 10 MG TAB, 3 TABS/BTL PO (18:48)
[2024-02-12 18:52] VITALS: BP 121/56; PULSE 90; RESP 12; O2SAT 98
== END 2024-02-12 18:54 | disposition home or self-care (01) ==
PROVIDERS: Emergency Provider Student in an Organized Health Care Education/Training Program
DX: M54.50 Low back pain, unspecified (principal); M62.830 Muscle spasm of back
CPT/HCPCS: 51798; 96372; 99284; 72131; 74176; 81003; 81015; 99283; J1885; J2919